=== PATIENT | male | born 1965 | race Caucasian/White ===

== ENCOUNTER 2021-01-30 11:26 | Outpatient (REF) | payer BC, SELFPAY | END 2021-01-30 11:27 | disposition home or self-care (01) | LOC: HO.LAB 11:26 | PROVIDERS: Visit Provider Internal Medicine | DX: Z20.822 Contact with and (suspected) exposure to COVID-19 (principal) | CPT/HCPCS: C9803; U0003; U0005 ==

== ENCOUNTER 2021-12-27 13:14 | Outpatient (REF) | payer BC, SELFPAY ==
--- NOTE | ~2021-12-27 | CT_ITS ---
EXAMINATION: CT CHEST SCREENING CLINICAL INFORMATION: Nicotine dependence. Current smoker of 1 pack per day x 44 years. COMPARISON: None. TECHNIQUE: Multidetector volumetric CT imaging of the chest is performed without contrast using low dose technique. Additional 2D coronal and sagittal reformatted images and axial 3D maximum intensity projection (MIP) images are generated on the CT workstation. This CT examination was performed using dose optimization techniques as appropriate, variously including the following: *Automated exposure control *Adjustment of mA and/or kV according to patient size (this includes techniques or standardized protocols for targeted exams where dose is matched to indication/reason for exam; i.e. extremities or head) *Use of iterative reconstruction technique DLP: 278 mGy-cm FINDINGS: LUNGS: The lungs are well expanded and clear of acute pneumonic consolidation. There are no pulmonary nodules, mass or ground-glass density. Focal atelectatic changes seen in the lingula. MEDIASTINUM: The thyroid lobes are symmetrical and normal. The central trachea and bronchi are widely patent. Heart size and the great vessels are normal caliber. No abnormal-sized mediastinal lymph nodes or mass seen. PLEURA: There is no pleural effusion. No pleural mass or thickening. AXILLA: No lymphadenopathy. UPPER ABDOMEN: Visualized liver, spleen, pancreas and gallbladder appears are unremarkable. OSSEOUS STRUCTURES: Visualized bones and soft tissues are unremarkable. CT/CT lung screening IMPRESSION: Unremarkable CT chest. ASSESSMENT: Lung-RADS category 1: Negative. RECOMMENDATION: Low-dose annual CT chest exam.
== END 2021-12-27 13:15 | disposition home or self-care (01) ==
LOC: HO.CT 13:14
PROVIDERS: PCP Internal Medicine; Visit Provider Physician Assistant Medical
DX: Z12.2 Encounter for screening for malignant neoplasm of respiratory organs (principal); Z87.891 Personal history of nicotine dependence
CPT/HCPCS: 71271; G0296

== ENCOUNTER 2023-02-23 09:48 | Outpatient (REF) | payer BC, SELFPAY ==
--- NOTE | ~2023-02-23 | CT_ITS ---
EXAMINATION: LUNG CANCER SCREENING CT CHEST WITHOUT CONTRAST CLINICAL INFORMATION: Current smoker with 44 pack year history COMPARISON: 12/27/2021 TECHNIQUE: Multidetector volumetric CT imaging of the chest was obtained noncontrast using low dose screening CT technique. Axial thin section 0.625 mm reformations in soft tissue and lung windows were obtained. Sagittal and coronal reformations were obtained. Axial MIP images were also created and reviewed. This CT examination was performed using dose optimization techniques as appropriate, variously including the following: *Automated exposure control *Adjustment of mA and/or kV according to patient size (this includes techniques or standardized protocols for targeted exams where dose is matched to indication/reason for exam; i.e. extremities or head) *Use of iterative reconstruction technique TOTAL EXAM DLP: 54.29 mGy-cm FINDINGS: PULMONARY NODULES: No suspicious pulmonary nodules. LUNGS / PLEURA: Mild emphysema. Diffuse moderate bronchial thickening without bronchiectasis. No pleural effusion or pneumothorax. MEDIASTINUM / NINA: Heart normal in size without pericardial effusion. Great vessels normal caliber. No lymphadenopathy. Coronary calcifications present. Imaged thyroid gland unremarkable. CHEST WALL / AXILLA: Unremarkable. UPPER ABDOMEN: Hepatic steatosis. Diverticulosis coli. OSSEOUS STRUCTURES: No acute or suspicious osseous abnormalities. CT/CT lung screening IMPRESSION: * No evidence of pulmonary malignancy. * Mild emphysema and chronic airways disease. ASSESSMENT: Lung RADS category: 1S. Negative. No nodules or definitely benign nodules. Continue annual screening with low-dose CT in 12 months. Probability of malignancy less than 1%. Clinically significant or potentially clinically significant findings (non lung cancer). Management as appropriate to the specific finding. INCIDENTAL FINDINGS (S CATEGORY): Hepatic steatosis. RECOMMENDATION: Follow up low dose CT chest in 1 year.
== END 2023-02-23 09:49 | disposition home or self-care (01) ==
LOC: HO.CT 09:48
PROVIDERS: Visit Provider Physician Assistant Medical
DX: Z12.2 Encounter for screening for malignant neoplasm of respiratory organs (principal); Z87.891 Personal history of nicotine dependence
CPT/HCPCS: 71271

== ENCOUNTER 2023-02-24 18:40 | Emergency (ER) | payer BC, SELFPAY ==
--- NOTE | ~2023-02-24 | XR_ITS ---
EXAMINATION: XR LUMBAR SPINE XR SACRUM/COCCYX CLINICAL INFORMATION: CT of the abdomen/pelvis dated 10/27/2019. COMPARISON: None available. TECHNIQUE: AP, lateral, and coned-down views of the lumbar spine. AP and lateral views of the sacrum and coccyx. FINDINGS: LUMBAR SPINE: Normal vertebral body alignment. The lumbar lordosis is maintained. No acute fracture or subluxation. No loss of vertebral body height. Mild multilevel loss of intervertebral disc height with endplate osteophytes, most prominent at L5-S1. Bilateral facet arthropathy at L5-S1. No concerning lytic or blastic osseous lesion. No abnormal soft tissue calcification. SACRUM/COCCYX: No acute fracture or dislocation. No sacroiliac joint space narrowing or marginal osteophytes. No osseous erosion. No abnormal soft tissue calcification. XR/XR lumbar spine 2-3V IMPRESSION: LUMBAR SPINE: Multilevel degenerative disc disease, most prominent at L5-S1. Bilateral facet arthropathy at L5-S1. Findings have progressed when compared to the prior CT. SACRUM/COCCYX: Unremarkable examination.
--- NOTE | ~2023-02-24 | CT_ITS ---
EXAMINATION: CT ABDOMEN AND PELVIS WITH CONTRAST CLINICAL INFORMATION: Left lower quadrant/groin pain COMPARISON: None available. TECHNIQUE: Multidetector volumetric images were obtained from the superior aspect of the liver through the pubic symphysis following administration 85 mL of Omnipaque 350 intravenous contrast. Sagittal and coronal reformatted images were obtained on the technologist's workstation. Oral contrast: No This CT examination was performed using dose optimization techniques as appropriate, variously including the following: *Automated exposure control *Adjustment of mA and/or kV according to patient size (this includes techniques or standardized protocols for targeted exams where dose is matched to indication/reason for exam; i.e. extremities or head) *Use of iterative reconstruction technique DLP: 616 mGy-cm FINDINGS: LUNG BASES: Moderate bronchial thickening. No parenchymal consolidation. LIVER, GALLBLADDER, AND BILIARY TREE: The liver is normal in size, shape, and attenuation. No focal hepatic lesion or biliary ductal dilatation is present. The gallbladder is unremarkable with no evidence of radiopaque gallstones, gallbladder wall thickening, or obvious pericholecystic inflammatory changes. PANCREAS: Unremarkable. SPLEEN: Unremarkable. ADRENAL GLANDS: Unremarkable. KIDNEYS AND URETERS: The kidneys are normal in size, shape, and attenuation. No hydronephrosis, hydroureter, or calculi seen. No perinephric stranding. BLADDER: Unremarkable. GASTROINTESTINAL TRACT: Pancolonic diverticulosis. No evidence of diverticulitis. Normal appendix. Stomach and small bowel unremarkable. ABDOMINAL WALL: There is an indirect inguinal hernia on the left containing small pocket of probable fluid within the inguinal canal measuring 2.7 cm LYMPH NODES: Normal. VASCULAR: Aorta mildly atherosclerotic but normal caliber. Patent vascular structures. PELVIC VISCERA: Prostate mildly enlarged. Seminal vesicles unremarkable. OSSEOUS STRUCTURES: Unremarkable. CT/CT abdomen pelvis w IV con IMPRESSION: * Indirect inguinal hernia on the left containing a small pocket of probable fluid within the inguinal canal measuring 2.7 cm. Consider scrotal ultrasound to ensure that this does not represent the left testicle. * Pancolonic diverticulosis without evidence of diverticulitis. * Moderate bronchial wall thickening.
--- NOTE | ~2023-02-24 | XR_ITS ---
EXAMINATION: XR LUMBAR SPINE XR SACRUM/COCCYX CLINICAL INFORMATION: CT of the abdomen/pelvis dated 10/27/2019. COMPARISON: None available. TECHNIQUE: AP, lateral, and coned-down views of the lumbar spine. AP and lateral views of the sacrum and coccyx. FINDINGS: LUMBAR SPINE: Normal vertebral body alignment. The lumbar lordosis is maintained. No acute fracture or subluxation. No loss of vertebral body height. Mild multilevel loss of intervertebral disc height with endplate osteophytes, most prominent at L5-S1. Bilateral facet arthropathy at L5-S1. No concerning lytic or blastic osseous lesion. No abnormal soft tissue calcification. SACRUM/COCCYX: No acute fracture or dislocation. No sacroiliac joint space narrowing or marginal osteophytes. No osseous erosion. No abnormal soft tissue calcification. XR/XR sacrum coccyx min 2V IMPRESSION: LUMBAR SPINE: Multilevel degenerative disc disease, most prominent at L5-S1. Bilateral facet arthropathy at L5-S1. Findings have progressed when compared to the prior CT. SACRUM/COCCYX: Unremarkable examination.
[2023-02-24 19:23] VITALS: BP 148/93; PULSE 80; RESP 20; TEMP 36.5; O2SAT 96; BMI 34.3
--- NOTE | 2023-02-24 19:23 | ED.GENADULT ---
HPI - General Adult General Chief complaint: Abdominal Pain Stated complaint: hernia pain? Time Seen by Provider: 02/24/23 23:05 Source: patient Mode of arrival: ambulatory Limitations: language barrier (Patient's 1st language is [place], speaks some [place] Islander, iPad terrestrial ecologist used) History of Present Illness HPI narrative: 57-year-old male who presents emergency department for evaluation left lower back and left groin pain. Patient states he has had this pain for years but it has been intermittent. He states that over the past week it has been constant. Patient states that he had a left hernia which was repaired approximately 8 years ago at [facility]. He states that there was a mesh placed as well. Since that surgery he states he has had a chronic pain in his left groin area. He states that his left lower back has a constant, sharp pain which is worse with movement. He states his left groin pain it is constant, swollen and worse if he pushes on the groin or left testicle. He denies radiation of the pain down his left leg, numbness or weakness of his left leg. He states that the pain is 6/10 at its worst. He denied fever, chills, rhinorrhea, sore throat, cough, nausea, vomiting, diarrhea. He does complain of dysuria and frequency. He is allergic to aspirin and ibuprofen, he states that aspirin causes swelling in ibuprofen causes itchiness. Provider at triage rapid medical examination reviewed by me. Related Data Previous Rx's Medication Instructions Recorded cyclobenzaprine 10 mg tablet 10 mg PO TID PRN pain, muscle 02/25/23 spasm #15 tabs morphine 15 mg immediate release 15 mg PO Q4-6H PRN pain #10 tabs 02/25/23 tablet Allergies Allergy/AdvReac Type Severity Reaction Status Date / Time aspirin [ASPIRIN] Allergy Unknown SWELLING Verified 02/24/23 22:27 Review of Systems Review of Systems: Yes all other systems are reviewed and are negative [facility] Past Medical History [facility] Narrative: Past medical history: Reviewed below. Social history: The patient is a former smoker and stop smoking 2 years prior. He denies alcohol use. He states that last week he did use intranasal cocaine. He denies using injection drugs. Medical History Asthma Depression with anxiety Insomnia Personal history of nicotine dependence Surgical History History of colon surgery History of left inguinal hernia repair Social History Social History Patient Tobacco Use Status: Former Tobacco user Quit Date: 06/2021 Tobacco use type: Cigarette Years Smoked: onset 11, 3/4-1ppd x 45yrs, 35pyh, quit 06/2021 Smoked in Last 30 Days: No Use of substances other than those prescribed or required for medical reasons: No Advance Directives: No Advance Directives Information Provided: No Physical Exam ED Vital Signs: Vital Signs - 24 hr 02/24/23 19:23 02/24/23 22:10 02/25/23 00:10 Temperature 97.7 F 97.9 F Pulse Rate 80 60 Respiratory Rate 20 17 14 Blood Pressure 148/93 H 141/83 H Pulse Oximetry 96 97 Oxygen Delivery Method Room Air Room Air 02/25/23 00:11 02/25/23 02:17 Temperature 97.9 F Pulse Rate 56 61 Respiratory Rate 18 18 Blood Pressure 131/74 120/81 Pulse Oximetry 97 97 Oxygen Delivery Method Room Air Room Air BMI result Body Mass Index 34.3 Const General: cooperative and no acute distress Orientation/consciousness: oriented to person and oriented to place Limitations: no limitations HENMT Head: Yes normal to inspection, Yes normocephalic and Yes atraumatic Ears: external ears normal General nose exam: Normal external nose present Face and sinus: Yes normal facial exam Mouth: Normal oral and palatal mucosa present Throat: Yes posterior oropharynx normal Eyes General: appearance normal, both eyes and all related structures Pupils: Equal, round and reactive pupils present Neck Neck: Yes normal visual inspection, Yes no lymphadenopathy, Yes trachea midline and Yes supple Chest Chest palpation & inspection: normal inspection of the chest and normal palpation of entire chest wall Resp Effort & Inspection: normal respiratory effort and able to speak in complete sentences Auscultation: clear to auscultation bilaterally Cardio Rate: regular rate Rhythm: regular rhythm Heart sounds: S1 normal heart sound present, S2 normal heart sound present and no murmurs GI Inspection: Yes normal to inspection Palpation (GI): Soft to palpation, Tenderness to palpation present (GI) in the LLQ (Moderate) and suprapubicly (My), no guarding and Hernia present (Tenderness insertion of the finger into Linguinal canal, groin tender) Auscultation: normal bowel sounds General: Yes no CVA tenderness Back/Spine/Pelvis Other: Tender left lumbar sacral paraspinal muscles and lumbar vertebrae Back: no CVA tenderness Skin General skin exam: no rashes or lesions noted Neuro General: oriented to person and oriented to place Cranial nerves: Yes CN's II-XII intact bilaterally and Yes Equal, round and reactive pupils present Cognition (Neuro): normal cognition Motor exam (neuro): 5/5 motor strength present throughout Extrem General: Yes normal to inspection Psych Appearance: grossly normal Speech and movement: Normal speech and movement present Affect: normal affect Attitude: cooperative Thought process: Normal thought process present Thought content: Normal thought content present Course Course Course Narrative: This is an RME: Additional HPI, ROS, PE not included below will be deferred to primary provider. [id number]- [place]-speaking male, with a past medical history of asthma, depression, and anxiety, presenting to the emergency department with complaints of left sided low back pain radiating into left groin and down left leg. Ongoing for last year, worsening over the last week. No trauma, injury, heavy lifting or falls. Had inguinal hernia with surgical repair 8 years ago and is nervous this is related. VSS. patient has tenderness to palpation to L spine and left SI joint. Pt ambulatory with antalgic gait Plan: xrays l-spine and sacrum/coccyx ordered. Medications Administered Discontinued Medications Generic Name Dose Route Start Last Admin Trade Name Freq PRN Reason Stop Dose Admin Sodium Chloride 1,000 mls @ 999 mls/hr 02/24/23 23:58 02/25/23 01:21 Ns IV 02/25/23 00:58 Infused .Q1H1M STA Infusion Iohexol 85 ml 02/25/23 01:09 02/25/23 01:09 Iohexol 350 Mg/Ml 100 Ml Infus..Btl IV 02/25/23 01:10 85 ml ONCE ONE Administration Morphine Sulfate 4 mg 02/24/23 23:58 02/25/23 00:10 Morphine Sulfate 4 Mg/Ml Cartridge IVPUSH 02/24/23 23:59 4 mg ONCE STA Administration Protocol Medical Decision Making Medical Decision Making MDM Narrative: 57-year-old male who presents emergency department for evaluation of left lower back pain and left groin pain which is chronic but worsened now constant over the past week. Patient has also had frequency and dysuria with no other concerning systemic symptoms. Examination did reveal tenderness with palpation of the lumbar sacral paraspinal muscles on the left and lumbar vertebrae. He has positive left straight leg raise. Patient also has tenderness with palpation of the left groin area with a fullness in this area . He also has pain with insertion of a finger into the left inguinal canal. Provider triage ordered lumbar , sacral and coccyx spine x-rays. These x-rays revealed multilevel degenerative disc disease most prominent at L5-S1. Bilateral facet arthropathy at L5-S1 findings worse compared to CT scan done on 10/27/2019. Given my examination findings, I ordered a CBC, CMP, lipase, urinalysis, CT scan of the abdomen pelvis . I ordered an IV insertion and morphine 4 mg IV for his pain 0404: My interpretation patient's diagnostic data is as follows: CBC was normal. INR was normal CMP was normal. Lipase was normal. CT scan of the abdomen pelvis with IV contrast did reveal an indirect inguinal hernia on the left containing a small pocket of probable fluid with inguinal canal measuring 2.7 cm. I did discuss this with the radiologist he states that there was no intestine in the canal, on my exam the patient does have a testicle in the left scrotal sac therefore I think the fluid is probably liquified fat. The patient will be referred to our on-call surgeon in determine if this inguinal canal fat hernia needs to be repaired given the amount of tenderness that the patient has. The patient will be discharged to home and advised to take Tylenol for pain and Flexeril for his back spasm. For pain not relieved by these medications she was prescribed morphine. He was given printed and verbal instructions and discharged home Differential Diagnosis Differential diagnosis includes was not limited to degenerative disc disease, degenerative vertebral disease, sciatica, kidney stone, urinary tract infection, pyelonephritis, left direct or indirect inguinal hernia Admission/Observation Consideration of admission/observation: Escalation of care including admission/observation considered Lab Data [facility] Lab Attestation statement: I reviewed the patient's lab results. See [facility] 02/25/23 00:18 02/25/23 00:18 Labs: Lab Results 02/24/23 02/25/23 02/25/23 Range/Units 23:34 00:18 00:18 WBC 6.9 (4.8-10.8) X10*3/uL RBC 4.92 (4.60-5.80) X10*6/uL Hgb 13.8 L (14.0-18.0) g/dl Hct 41.9 L (42.0-52.0) % MCV 85.2 (80.0-98.0) fL MCH 28.0 (27.0-33.0) pg MCHC 32.9 (31.0-36.0) g/dl RDW 12.5 (11.0-16.0) % Plt Count 212 (160-400) X10*3/uL MPV 11.3 (9.4-12.4) fL Immature Gran % (Auto) 0.1 (0.0-0.4) % Neut % (Auto) 57.7 (45-73) % Lymph % (Auto) 27.4 (20-40) % Island % (Auto) 10.0 (2-11) % Eos % (Auto) 4.1 H (0-4) % Baso % (Auto) 0.7 (0-2) % Lymph # (Auto) 1.9 (1.2-4.9) X10*3/uL Island # (Auto) 0.7 (0.1-1.2) X10*3/uL Eos # (Auto) 0.3 (0.0-0.4) X10*3/uL Baso # (Auto) 0.1 (0.0-0.2) X10*3/uL Abs Immat Gran (auto) 0.01 (0.00-0.03) X10*3/uL Absolute Neuts (auto) 4.0 (2.0-8.3) x10*3/uL Absolute Nucleated RBC 0.000 (0.0-0.012) X10*3/uL Nucleated RBC % (auto) 0.0 (0.0-0.2) /100WBC PT (10.0-13.1) SEC INR (0.9-1.1) Sodium 143 (135-145) mmol/L Potassium 4.1 (3.3-5.1) mmol/L Chloride 104 (96-108) mmol/L Carbon Dioxide 31 H (22-29) mmol/L Anion Gap 12 (12-20) BUN 12 (9-16) mg/dL Creatinine 0.99 (0.5-1.4) mg/dL Estim Creat Clear Calc 82.6 Estimated GFR > 60 Random Glucose 107 (60-115) mg/dL Calcium 9.3 (8.4-10.2) mg/dL Total Bilirubin 0.7 (0.0-1.0) mg/dL AST 14 (5-37) U/L ALT 30 (0-40) U/L Alkaline Phosphatase 65 (39-117) U/L Total Protein 6.6 (6.5-8.0) g/dL Albumin 4.3 (3.5-5.0) g/dL Lipase 43 (8-78) U/L Urine Color Yellow Urine Appearance Clear Urine pH 6.0 (5.0-9.0) Ur Specific [place] 1.015 (1.005-1.025) Urine Protein Negative (Neg-Trace) mg/dL Urine Glucose (UA) Negative (Negative) mg/dL Urine Ketones Negative (Negative) mg/dL Urine Blood Negative (Negative) Urine Nitrite Negative (Negative) Ur Leukocyte Esterase Negative (Negative) 02/25/23 Range/Units 00:18 WBC (4.8-10.8) X10*3/uL RBC (4.60-5.80) X10*6/uL Hgb (14.0-18.0) g/dl Hct (42.0-52.0) % MCV (80.0-98.0) fL MCH (27.0-33.0) pg MCHC (31.0-36.0) g/dl RDW (11.0-16.0) % Plt Count (160-400) X10*3/uL MPV (9.4-12.4) fL Immature Gran % (Auto) (0.0-0.4) % Neut % (Auto) (45-73) % Lymph % (Auto) (20-40) % Island % (Auto) (2-11) % Eos % (Auto) (0-4) % Baso % (Auto) (0-2) % Lymph # (Auto) (1.2-4.9) X10*3/uL Island # (Auto) (0.1-1.2) X10*3/uL Eos # (Auto) (0.0-0.4) X10*3/uL Baso # (Auto) (0.0-0.2) X10*3/uL Abs Immat Gran (auto) (0.00-0.03) X10*3/uL Absolute Neuts (auto) (2.0-8.3) x10*3/uL Absolute Nucleated RBC (0.0-0.012) X10*3/uL Nucleated RBC % (auto) (0.0-0.2) /100WBC PT 10.9 (10.0-13.1) SEC INR 1.0 (0.9-1.1) Sodium (135-145) mmol/L Potassium (3.3-5.1) mmol/L Chloride (96-108) mmol/L Carbon Dioxide (22-29) mmol/L Anion Gap (12-20) BUN (9-16) mg/dL Creatinine (0.5-1.4) mg/dL Estim Creat Clear Calc Estimated GFR Random Glucose (60-115) mg/dL Calcium (8.4-10.2) mg/dL Total Bilirubin (0.0-1.0) mg/dL AST (5-37) U/L ALT (0-40) U/L Alkaline Phosphatase (39-117) U/L Total Protein (6.5-8.0) g/dL Albumin (3.5-5.0) g/dL Lipase (8-78) U/L Urine Color Urine Appearance Urine pH (5.0-9.0) Ur Specific [place] (1.005-1.025) Urine Protein (Neg-Trace) mg/dL Urine Glucose (UA) (Negative) mg/dL Urine Ketones (Negative) mg/dL Urine Blood (Negative) Urine Nitrite (Negative) Ur Leukocyte Esterase (Negative) Radiology Impression Discussion of test interpretation with radiology: I discussed test interpretation with the radiologist and I have reviewed the radiologist's reading. Radiologist Impression: XR/XR sacrum coccyx min 2V IMPRESSION: LUMBAR SPINE: Multilevel degenerative disc disease, most prominent at L5-S1. Bilateral facet arthropathy at L5-S1. Findings have progressed when compared to the prior CT (10/27/2019). SACRUM/COCCYX: Unremarkable examination. Dictated By:Dashawn Reveles MD CT abdomen pelvis w IV con IMPRESSION: * Indirect inguinal hernia on the left containing a small pocket of probable fluid within the inguinal canal measuring 2.7 cm. Consider scrotal ultrasound to ensure that this does not represent the left testicle. * Pancolonic diverticulosis without evidence of diverticulitis. * Moderate bronchial wall thickening. Dictated By:Kristopher Fontaine MD External Record Review External record reviewed: Other ([facility] prescription management program-no narcotic prescriptions recently in the last year) Discharge Plan Discharge Clinical Impression: Left inguinal pain Acute lumbar myofascial strain Qualifiers: Encounter type: initial encounter Qualified Code(s): S39.012A - Strain of muscle, fascia and tendon of lower back, initial encounter Patient Disposition: Home, Self-Care Instructions: Inguinal Hernia (ED), Acute Low Back Pain (ED) Additional Instructions: Your blood work was normal. Your exam did reveal tenderness with palpation of your lower back and you do have degenerative changes of your lumbar discs which is most likely causing her pain. The CT scan of your abdomen pelvis did reveal any inguinal hernia that contains fat only and does not contain any intestine/bowel. The fat in the hernia is causing your pain. Apply ice to this area for 15 minutes 4 to 6 times a day to help reduce the swelling and pain Call our surgeon on-call for follow-up in 1-2 weeks to see if this needs surgical repair. Take Tylenol (acetaminophen) 2 pills every 6 hours as needed for pain. For pain not relieved by Tylenol take morphine 15 mg pills, 1 pill every 4 hours as needed for pain. This medication will make you sleepy, do not drive or work while taking this medication. Morphine is a narcotic medication and can be addicting. If you are concerned about addiction you can ask the pharmacist for less pills or do not get this prescription filled. Take Flexeril (cyclobenzaprine) 10 mg pills, 1 pill every 6-8 hours as needed for pain or spasm. This medication will make you sleepy. Do not drive or work while taking this medication. Follow-up with your doctor in 2 days. Please return to the emergency department if your symptoms get worse or if you develop any symptoms that are concerning to you. Please see the work note Prescriptions: New cyclobenzaprine 10 mg tablet 10 mg PO TID PRN (Reason: pain, muscle spasm) Qty: 15 0RF morphine 15 mg tablet 15 mg PO Q4-6H PRN (Reason: pain) Qty: 10 0RF Rx Instructions: The patient may ask for partial fill; Partial Fill upon patient request. Referrals: Yuan Goel MD [Physician] - 2 weeks Stand Alone Forms: Work/School Release Print Language: [place]
--- NOTE | 2023-02-24 22:06 | PC.NURSE ---
c/o abd pain that has worsened since last night and has kept him awake and increased lower back pain h/o asthma, anxiety, depression, allergy to aspirin aox4 pt given urine cup for sample; pt ambulates safely to restroom and back to safely and independently
[2023-02-24 22:10] VITALS: BP 141/83; PULSE 60; RESP 17; TEMP 36.6; O2SAT 97
--- NOTE | 2023-02-24 23:38 | PC.NURSE ---
urine sample labeled and sent to lab via tube system
--- NOTE | 2023-02-24 23:38 | PC.NURSE ---
states he had a surgery in the abdomen where mesh was placed and since then has been having chronic pain in the affected area
[2023-02-24 23:41] LABS: Appearance Urine Clear; Color Urine Yellow; Glucose Urine UA Negative (Negative); Leukocyte Esterase Urine Negative (Negative); Nitrite Urine Negative (Negative); Specific Gravity - Urine 1.015 (1.005-1.025); Urine Blood Negative (Negative); Urine Ketones Negative (Negative); Urine Protein Negative (Neg-Trace)
[2023-02-25] MEDS: 0.9 % Sodium Chloride 1,000 ML 999 ML IV (00:05)
[2023-02-25 00:10] VITALS: RESP 14
[2023-02-25] MEDS: Morphine Sulfate 4 MG/ML CARTRIDGE IVPUSH ×2 (00:10→04:30)
[2023-02-25 00:11] VITALS: BP 131/74; PULSE 56; RESP 18; TEMP 36.6; O2SAT 97
[2023-02-25 00:25] LABS: Basophils Absolute Auto 0.1 X10*3/uL (0.0-0.2); Basophils Percent Auto 0.7 % (0-2); Eosinophils Absolute Auto 0.3 X10*3/uL (0.0-0.4); Eosinophils Percent Auto 4.1 % (0-4); Hematocrit 41.9 % (42.0-52.0); Hemoglobin 13.8 g/dl (14.0-18.0); Imm Gran Abs Auto 0.01 X10*3/uL (0.00-0.03); Imm Gran Pct Auto 0.1 % (0.0-0.4); Lymphocytes Absolute Auto 1.9 X10*3/uL (1.2-4.9); Lymphocytes Percent Auto 27.4 % (20-40); MANUAL DIFF FLAG NO; Mean Corpuscular HGB Conc 32.9 g/dl (31.0-36.0); Mean Corpuscular Volume 85.2 fL (80.0-98.0); Mean Platelet Volume 11.3 fL (9.4-12.4); Monocytes Absolute Auto 0.7 X10*3/uL (0.1-1.2); Neutrophils Percent Auto 57.7 % (45-73); Platelet Count 212 X10*3/uL (160-400); Red Blood Count 4.92 X10*6/uL (4.60-5.80); Red Cell Distribution Width 12.5 % (11.0-16.0); White Blood Count 6.9 X10*3/uL (4.8-10.8)
[2023-02-25 00:30] LABS: Prothrombin Time 10.9 SEC (10.0-13.1)
[2023-02-25 00:39] LABS: Alanine Aminotransferase 30 U/L (0-40); Albumin Level 4.3 g/dL (3.5-5.0); Alkaline Phosphatase 65 U/L (39-117); Anion Gap 12 (12-20); Aspartate Amino Transferase 14 U/L (5-37); Bilirubin Total 0.7 mg/dL (0.0-1.0); Blood Urea Nitrogen 12 mg/dL (9-16); Calcium 9.3 mg/dL (8.4-10.2); Carbon Dioxide 31 mmol/L (22-29); Chloride 104 mmol/L (96-108); Creatinine Clr Calc Pharmacy 82.6; Estimated Glomerular Filt Rate > 60; Glucose Random 107 mg/dL (60-115); Lipase 43 U/L (8-78); Potassium 4.1 mmol/L (3.3-5.1); Sodium 143 mmol/L (135-145); Total Protein 6.6 g/dL (6.5-8.0)
[2023-02-25] MEDS: iohexoL 350 MG/ML 100 ML INFUS..BTL 85 ML IV (01:09)
[2023-02-25 02:17] VITALS: BP 120/81; PULSE 61; RESP 18; O2SAT 97
[2023-02-25 04:30] VITALS: RESP 14
[2023-02-25 04:35] VITALS: BP 127/71; PULSE 64; RESP 12; O2SAT 96
--- NOTE | 2023-02-25 04:54 | PC.NURSE ---
Discharge instructions given and explained to pt No apparent distress Ambulates safely and independently aox4 IV cath tip intact upon removal VSS prior to discharge
== END 2023-02-25 04:54 | disposition home or self-care (01) ==
PROVIDERS: Emergency Provider Emergency Medicine Emergency Medical Services; PCP Internal Medicine
DX: R10.2 Pelvic and perineal pain (principal); S39.012A Strain of muscle, fascia and tendon of lower back, initial encounter; X58.XXXA Exposure to other specified factors, initial encounter; Y93.9 Activity, unspecified; Y92.019 Unspecified place in single-family (private) house as the place of occurrence of the external cause; Y99.9 Unspecified external cause status
CPT/HCPCS: 36415; 72100; 72220; 74177; 80053; 81003; 83690; 85025; 85610; 96361; 96374; 96376; 99285; J2270; Q9967

== ENCOUNTER → 2023-03-10 12:30 | Outpatient (BNVA) | payer BC, SELFPAY | PROVIDERS: PCP Internal Medicine; Visit Provider Surgery ==

== ENCOUNTER 2024-04-12 10:01 | Outpatient (REF) | payer BC, SELFPAY ==
--- NOTE | ~2024-04-12 | CT_ITS ---
EXAMINATION: CT LOW-DOSE SCREENING CHEST WITHOUT CONTRAST CLINICAL INFORMATION: Personal history of nicotine dependence. The patient is a current smoker with a 44 pack-year history of smoking. COMPARISON: CT chest 02/23/2023 and 02/26/2022. TECHNIQUE: Multidetector volumetric CT imaging of the chest is performed on a Siemens SOMATOM Definition scanner without contrast using low dose technique. Additional 2D coronal and sagittal reformatted images and axial 3D maximum intensity projection (MIP) images are generated on the CT workstation. This CT examination was performed using dose optimization techniques as appropriate, variously including the following: *Automated exposure control *Adjustment of mA and/or kV according to patient size (this includes techniques or standardized protocols for targeted exams where dose is matched to indication/reason for exam; i.e. extremities or head) *Use of iterative reconstruction technique TOTAL EXAM DLP: 58 mGy-cm CTDIvol: 1.75 mGy FINDINGS: PULMONARY NODULES: No suspicious pulmonary nodules. LUNGS: Lungs bilaterally symmetrically expanded. There is minimal emphysema and mild bronchial thickening without bronchiectasis. No effusion or pneumothorax. Central airways patent. MEDIASTINUM: No mediastinal, hilar or axillary adenopathy or free fluid collection. CORONARY ARTERY CALCIFICATION: Minimal. THYROID GLAND: Unremarkable to the extent seen. CARDIOVASCULAR STRUCTURES: Aortic and heart size normal. No pericardial effusion. CHEST WALL/AXILLA: Unremarkable. UPPER ABDOMEN: Included portions of the solid organs in the upper abdomen unremarkable on noncontrast imaging aside from the presence of hepatic steatosis. OSSEOUS STRUCTURES: No suspicious focal findings. CT/CT lung screening IMPRESSION: 1. No evidence of pulmonary malignancy. 2. Minimal emphysema and mild bronchial thickening. 3. Hepatic steatosis. ASSESSMENT: Lung-RADS Category 1: Negative. There are no nodules or there are definitely benign nodules. N/A RECOMMENDATION: Continued routine annual low-dose CT lung screening in 1 year is recommended. An order for CT CHEST LOW DOSE CANCER SCREENING ([id number]) can be placed.
== END 2024-04-12 10:02 | disposition home or self-care (01) ==
LOC: HO.CT 10:01
PROVIDERS: PCP Internal Medicine; Visit Provider Physician Assistant Medical
DX: Z12.2 Encounter for screening for malignant neoplasm of respiratory organs (principal); Z87.891 Personal history of nicotine dependence
CPT/HCPCS: 71271

== ENCOUNTER 2024-08-03 12:20 | Outpatient (REF) | payer BC, SELFPAY ==
--- NOTE | ~2024-08-03 | XR_ITS ---
EXAMINATION: XR KNEE, LEFT CLINICAL INFORMATION: Left knee pain COMPARISON: None available. TECHNIQUE: Four views of the left knee. FINDINGS: No evidence for acute fracture or dislocation. No osteochondral lesions seen. There is slight to mild narrowing in the medial joint space compartment. No erosive process. The fibular head is intact. Small spurring of the patella. Suprapatellar effusion is noted. XR/XR knee LT 4V IMPRESSION: No evidence for acute fracture. Degenerative changes. Suprapatellar effusion. Electronically signed by: Imtiaz Mcghee MD 08/03/2024 04:50 PM EDT
== END 2024-08-03 12:21 | disposition home or self-care (01) ==
LOC: HO.HHCX 12:20
PROVIDERS: Visit Provider General Practice
DX: M25.562 Pain in left knee (principal); G89.29 Other chronic pain
CPT/HCPCS: 73564

== ENCOUNTER 2024-08-05 10:17 | Outpatient (REF) | payer BC, SELFPAY ==
[2024-08-05 11:15] LABS: MANUAL DIFF FLAG NO
[2024-08-05 11:21] LABS: Basophils Absolute Auto 0.1 X10*3/uL (0.0-0.2); Basophils Percent Auto 0.8 % (0-2); Eosinophils Absolute Auto 0.2 X10*3/uL (0.0-0.4); Eosinophils Percent Auto 3.4 % (0-4); Hematocrit 43.1 % (42.0-52.0); Hemoglobin 14.5 g/dl (14.0-18.0); Imm Gran Abs Auto 0.02 X10*3/uL (0.00-0.03); Imm Gran Pct Auto 0.3 % (0.0-0.4); Lymphocytes Absolute Auto 1.4 X10*3/uL (1.2-4.9); Lymphocytes Percent Auto 22.7 % (20-40); Mean Corpuscular HGB Conc 33.6 g/dl (31.0-36.0); Mean Corpuscular Hemoglobin 28.8 pg (27.0-33.0); Mean Corpuscular Volume 85.7 fL (80.0-98.0); Mean Platelet Volume 11.7 fL (9.4-12.4); Monocytes Absolute Auto 0.7 X10*3/uL (0.1-1.2); Monocytes Percent Auto 10.8 % (2-11); Neutrophils Absolute Auto 3.8 x10*3/uL (2.0-8.3); Platelet Count 237 X10*3/uL (160-400); Red Blood Count 5.03 X10*6/uL (4.60-5.80); Red Cell Distribution Width 12.6 % (11.0-16.0); White Blood Count 6.1 X10*3/uL (4.8-10.8)
[2024-08-05 11:31] LABS: Estimated Average Glucose 134 mg/dL; Hemoglobin A1C 155.4984 umol/L; Hemoglobin A1c % 6.3 % (<6.0); Total Hemoglobin (HGBA1C) 3460.1805 umol/L
[2024-08-05 11:42] LABS: Alanine Aminotransferase 33 U/L (0-40); Albumin Level 4.1 g/dL (3.5-5.0); Alkaline Phosphatase 64 U/L (39-117); Anion Gap 11 (12-20); Aspartate Amino Transferase 22 U/L (5-37); Bilirubin Total 0.5 mg/dL (0.0-1.0); Blood Urea Nitrogen 23 mg/dL (9-16); Calcium 9.3 mg/dL (8.4-10.2); Carbon Dioxide 27 mmol/L (22-29); Chloride 108 mmol/L (96-108); Cholesterol 181 mg/dL (<200); Estimated Glomerular Filt Rate > 60; Glucose Random 121 mg/dL (60-115); HDL Cholesterol 56 mg/dL (>40); LDL Cholesterol Calculated 108 mg/dL (<100); Potassium 4.3 mmol/L (3.3-5.1); Sodium 142 mmol/L (135-145); Total Protein 6.8 g/dL (6.5-8.0); Triglycerides 86 mg/dL (<150)
[2024-08-05 11:49] LABS: HIV AB/AG Nonreactive (Nonreactive); HIV Num 1 0.05 S/CO (0.00-0.99); ~HepC Num1 0.09 S/CO (0.00-0.79); ~Hepatitis C Antibody Nonreactive (Nonreactive)
[2024-08-05 13:19] LABS: CT PCR NOT DETECTED (Not Detect.); NG PCR NOT DETECTED (Not Detect.)
[2024-08-08 13:13] LABS: RPR Rapid Plasma Reagin NON-REACTIVE (NON-REACTIVE)
== END 2024-08-05 10:18 | disposition home or self-care (01) ==
LOC: HO.HHCL 10:17
PROVIDERS: Visit Provider General Practice
DX: E66.812 Obesity, class 2 (principal); Z68.36 Body mass index [BMI] 36.0-36.9, adult; Z11.3 Encounter for screening for infections with a predominantly sexual mode of transmission
CPT/HCPCS: 36415; 80053; 80061; 83036; 85025; 86592; 86803; 87389; 87491; 87591

== ENCOUNTER 2024-08-25 09:33 | Outpatient (REF) | payer BC, SELFPAY ==
--- NOTE | 2024-08-25 09:45 | PFT_ITS ---
Flows: FEV1: 70 % of predicted at 2.06 L FVC: 86 % of predicted at 3.19 L FEV1/FVC: 65 % Bronchodilator response: Present Volumes: Total lung capacity: 68 % of predicted at 4.00 L Residual volume: 88 % of predicted at 1.61 L Slow vital capacity: 58 % of predicted at 2.39 L Expiratory reserve volume: 66 % of predicted at 0.65 L Diffusion capacity: Normal Impression: Combined moderate obstructive and restrictive ventilatory defect with positive bronchodilator response. MTDD
[2024-08-25 14:36] VITALS: PULSE 69; O2SAT 98
== END 2024-08-25 09:34 | disposition home or self-care (01) ==
LOC: HO.RESP 09:33
PROVIDERS: PCP General Practice; Visit Provider General Practice
DX: J45.40 Moderate persistent asthma, uncomplicated (principal); J43.9 Emphysema, unspecified
CPT/HCPCS: 94010; 94640; 94727; 94729

== ENCOUNTER → 2024-08-25 09:45 | Outpatient (BNV) | payer BC, SELFPAY | PROVIDERS: PCP General Practice; Visit Provider Internal Medicine Pulmonary Disease | DX: J43.9 Emphysema, unspecified (principal) | CPT/HCPCS: 94060; 94727; 94729 ==

== ENCOUNTER 2024-11-09 09:16 | Outpatient (REF) | payer BC, SELFPAY ==
--- NOTE | ~2024-11-09 | US_ITS ---
CLINICAL HISTORY: RUQ pain US abdomen complete Comparison: CT/REG/MO/SR - CT ABDOMEN PELVIS W IV CON - 02/25/23 00:54 EDT Findings: The visualized pancreas is normal. The aorta and inferior vena cava are normal caliber. Liver is mildly enlarged with increase of echogenicity. 1.9 x 1 x 1.3 cm poorly defined hypodense area in the left lobe. There is no intrahepatic bile duct dilatation. The common duct is 3.0 mm in diameter. The gallbladder is normal. There is no sonographic Simon sign. The main portal vein is antegrade. The right kidney is 10 cm in length. The left kidney is 10 cm in length. The spleen is normal. No ascites. IMPRESSION: Hepatomegaly and hepatic steatosis. A small hypodense area in the left lobe of the liver not visualized on the prior CT could represent focal fat sparing. Ultrasound follow-up in 3-6 months as indicated to confirm stability and exclude other possibility. Gallbladder is unremarkable. This document has been electronically signed by: Rebecca Calderon MD on 11/09/2024 13:51:56
== END 2024-11-09 09:17 | disposition home or self-care (01) ==
LOC: HO.US 09:16
PROVIDERS: PCP General Practice; Visit Provider General Practice
DX: R10.11 Right upper quadrant pain (principal)
CPT/HCPCS: 76700

== ENCOUNTER → 2024-11-09 09:20 | Outpatient (BNV) | payer BC, SELFPAY | PROVIDERS: PCP General Practice; Visit Provider Nuclear Medicine | DX: K76.0 Fatty (change of) liver, not elsewhere classified (principal); R16.0 Hepatomegaly, not elsewhere classified | CPT/HCPCS: 76700 ==

== ENCOUNTER 2025-01-05 11:00 | Outpatient (REF) | payer BC, SELFPAY ==
[2025-01-05 13:50] LABS: C Reactive Protein 0.72 mg/dL (< or = 0.50)
[2025-01-05 14:10] LABS: Erythrocyte Sedimentation Rate 2 MM/HR (0-15)
[2025-01-06 18:34] LABS: Lyme Abs Screen <0.90 index
== END 2025-01-05 11:01 | disposition home or self-care (01) ==
LOC: HO.HHCL 11:00
PROVIDERS: Visit Provider General Practice
DX: M19.90 Unspecified osteoarthritis, unspecified site (principal)
CPT/HCPCS: 36415; 85652; 86140; 86617; 86618

== ENCOUNTER → 2025-02-21 19:30 | Outpatient (REF) | payer BC, SELFPAY | LOC: HO.SL 19:30 | PROVIDERS: PCP General Practice; Visit Provider General Practice | DX: R40.0 Somnolence (principal); G47.33 Obstructive sleep apnea (adult) (pediatric) | CPT/HCPCS: 95810 ==

== ENCOUNTER → 2025-02-21 20:30 | Outpatient (BNV) | payer BC, SELFPAY | PROVIDERS: PCP General Practice; Visit Provider Internal Medicine | DX: G47.33 Obstructive sleep apnea (adult) (pediatric) (principal); R06.83 Snoring | CPT/HCPCS: 95810 ==

== ENCOUNTER 2025-05-05 15:42 | Outpatient (REF) | payer BC, SELFPAY ==
--- NOTE | ~2025-05-05 | CT_ITS ---
CLINICAL HISTORY: Z87.891 - Personal history of nicotine dependence CT lung cancer screening (LDCT) Comparison: CT/REG/DE/SR - CT LUNG SCREENING - 04/12/24 10:11 EDT Technique: Axial CT images of the chest using low-dose technique. Referring provider counseled the patient on shared decision-making for LDCT screening. Additional counseling was provided on smoking cessation. Effective radiation dose total: DLP 41.2 mGycm, CTDIvol 1.4 mGy. Findings: Pulmonary nodules: None Incidental pulmonary findings Mild airway thickening. Non pulmonary findings: Coronary artery calcifications: Moderate Limited upper abdomen: Unremarkable Other: None Impression: LungRADS 1: Negative exam. Continue annual screening with low dose Chest CT in 12 months. ##L1## Category 1: Normal; continue annual screening Category 2: Benign appearance or behavior, continue annual screening Category 3: Probably benign, [address] recommended Category 4A: Suspicious, [address] recommended; may consider PET/CT Category 4B: Suspicious, Additional diagnostics and/or tissue sampling recommended Category 4X: Suspicious, Additional diagnostics and/or tissue sampling recommended Category 0: Recalls (incomplete screen due to Incomplete coverage, Noise, Respiratory motion, Expiration, Obscured by acute abnormality) This document has been electronically signed by: Laron Acharya MD on 05/08/2025 11:45:52
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
== END 2025-05-05 15:43 | disposition home or self-care (01) ==
LOC: HO.CT 15:42
PROVIDERS: PCP General Practice; Visit Provider Physician Assistant Medical
DX: Z12.2 Encounter for screening for malignant neoplasm of respiratory organs (principal); Z87.891 Personal history of nicotine dependence
CPT/HCPCS: 71271

== ENCOUNTER → 2025-05-05 15:46 | Outpatient (BNV) | payer BC, SELFPAY | PROVIDERS: PCP General Practice; Visit Provider Radiology Vascular & Interventional Radiology | DX: Z12.2 Encounter for screening for malignant neoplasm of respiratory organs (principal); Z87.891 Personal history of nicotine dependence | CPT/HCPCS: 71271 ==